=== PATIENT | male | born 1995 | race Caucasian/White ===

== ENCOUNTER → 2019-10-18 10:10 | Outpatient (BNVA) | payer SELFPAY | PROVIDERS: Family Provider Family Medicine; PCP Family Medicine; Visit Provider Nurse Practitioner Family | DX: J10.1 Influenza due to other identified influenza virus with other respiratory manifestations (principal) | CPT/HCPCS: 87070; 87804; 87880 ==

== ENCOUNTER 2020-01-06 16:22 | Emergency (ER) | payer SELFPAY ==
[2020-01-06 16:42] VITALS: BP 152/88; PULSE 82; RESP 16; TEMP 36.7; O2SAT 98; BMI 24.3
--- NOTE | 2020-01-06 16:56 | XRR_ITS ---
PROCEDURE INFORMATION: Exam: XR Chest, 1 View Exam date and time: 01/06/2020 5:21 PM Age: 24 years old Clinical indication: Patient HX: Cough/congestion x1 wk TECHNIQUE: Imaging protocol: XR of the chest Views: 1 view. COMPARISON: No relevant prior studies available. FINDINGS: Lungs: Unremarkable. No consolidation. Pleural space: Unremarkable. No pleural effusion. No pneumothorax. Heart/Mediastinum: Unremarkable. No cardiomegaly. Bones/joints: Unremarkable. XR/XR chest 1V portable [id number] IMPRESSION: No acute findings.
--- NOTE | 2020-01-06 17:15 | ED_ITS ---
HPI - URI/Sore Throat General: Chief Complaint: Upper Respiratory Infection Stated Complaint: LEFT SIDE PAIN UPPER CHEST Time Seen by Provider: 01/06/20 17:14 Source: patient Mode of arrival: ambulatory Limitations: no limitations History of Present Illness: HPI Narrative: Patient comes in with post history bronchitis for 1 week. Patient reports feeling somewhat better but continues to have left posterior back pain and occasional cough. Patient was prescribed azithromycin 5 days ago and he completed that today. Patient appears well. Patient appears in no acute distress or pain. Review of Systems General: Reports: 10 or more systems reviewed and unremarkable except in HPI and below Resp: Reports: non-productive cough PFS ED PFSH: Social History (Updated 10/18/19 @ 11:04 by Kathrin Resendiz LPN) Smoking and tobacco status: never smoked Alcohol intake: never Physical Exam Const: COMMON NORMALS: no apparent distress and oriented x3 GENERAL APPEARANCE: cooperative HENMT: COMMON NORMALS: normocephalic, external ears normal, EAC's normal, TM's normal bilaterally and external nose normal HEAD & SCALP: normal to inspection and normocephalic FACE & SINUS: normal facial exam NOSE: external nose normal GENERAL EAR: hearing not grossly impaired EXTERNAL EAR: Yes external ears normal EXTERNAL AUDITORY CANAL: EAC's normal TYMPANIC MEMBRANE: TM's normal bilaterally MOUTH: oral and palatal mucosa normal THROAT: posterior oropharynx normal Eye: COMMON NORMALS: PERRL and EOMs intact bilaterally PUPIL: Yes PERRL Neck/C-Spine: COMMON NORMALS: full ROM and no lymphadenopathy Lymph: LYMPHATIC: no lymphedema noted Chest: COMMONS NORMALS: inspection of chest normal and palpation of chest normal Resp: COMMON NORMALS: normal respiratory effort and clear to auscultation bilaterally AUSCULTATION: clear to auscultation bilaterally Cardio: COMMON NORMALS: regular rate and regular rhythm RATE: regular rate RHYTHM: regular rhythm GI: COMMON NORMALS: normal to inspection, nondistended, normoactive bowel sounds and non-tender : COMMON NORMALS: Yes no CVA tenderness BLADDER/KIDNEY EXAM: Yes no CVA tenderness Back/Pelvis: COMMON NORMALS: no CVA tenderness and thoracic and lumbar spine normal to inspection Extremity: COMMON NORMALS: normal to inspection GENERAL: No edema Neuro: COMMON NORMALS: oriented x3, moves all extremities and no focal motor deficits Psych: COMMON NORMALS: mental status grossly normal and cooperative Skin: COMMON NORMALS: no rashes or lesions noted GENERAL SKIN EXAM: no rashes or lesions noted Course Vital Signs: Vital signs: Vital Signs Temperature 98.1 F 01/06/20 16:42 Pulse Rate 82 01/06/20 16:42 Respiratory Rate 16 01/06/20 16:42 Blood Pressure 152/88 01/06/20 16:42 Pulse Oximetry 98 01/06/20 16:42 MDM - URI/Sore Throat MDM Narrative: Medical decision making narrative: Patient comes in for continued cough and some left posterior chest wall pain after treatment for bronchitis. Exam notes clear lung lung solis on auscultation. Skin is warm and dry. No edema in the extremities. Vital signs are normal. No fever. Differential diagnosis pneumonia, pleurisy, bronchitis, asthma, costochondritis. Chest x-ray was normal. Reviewed exam with patient recommended treatment with pleurisy with prednisone. Patient reports understanding of care plan and need for follow-up. Discharge Plan Discharge Patient Disposition: Home, Self-Care Clinical Impression: Pleurisy, residual, Bronchitis Condition: Stable Prescriptions: New prednisone 20 mg tablet 40 mg PO DAILY 5 Days Qty: 10 RF: 0 No Action azithromycin 250 mg tablet See Rx Instructions PO .COMPLEX Qty: 6 RF: 0 Referrals: Saskia De Paz MD [Family Provider] - Blaine Bhat DO [Primary Care Provider] - Discharge Diet: Usual diet Discharge Activity: Increase activity as tolerated Patient Instructions: Pleurisy (ED) Activity Restrictions/Additional Instructions: drink plenty of water with medications Activity as tolerated Healthy diet and exercise Medications as directed Follow-up with primary care in one week for recheck Return to ER for increased difficulty breathing or high fever Coding Level of Care Code ED Cardiothoracic Anesthesia Technician for Chg Fwd Exam Comprehensive
[2020-01-06 17:56] VITALS: BP 148/68; PULSE 81; RESP 16; O2SAT 97
== END 2020-01-06 17:58 | disposition home or self-care (01) ==
LOC: ER 01-24 11:29
PROVIDERS: Emergency Provider Nurse Practitioner Family; Family Provider Family Medicine; PCP Family Medicine
DX: R09.1 Pleurisy (principal); J40 Bronchitis, not specified as acute or chronic
CPT/HCPCS: 12345; 71045; 99281; 99282

== ENCOUNTER 2021-06-22 09:05 | Emergency (ER) | payer OTHER, SELFPAY ==
[2021-06-22 09:39] VITALS: BP 157/104; PULSE 77; RESP 18; TEMP 36.6; O2SAT 99; BMI 25.0
--- NOTE | 2021-06-22 10:46 | W.ED.WOUNDLC ---
HPI - Wound/Laceration General: Chief Complaint: Wound/Laceration Stated Complaint: Cut Hand with Razorblade Time Seen by Provider: 06/22/21 10:40 History of Present Illness: HPI narrative: Patient is a 25-year-old male who comes to the ED with a laceration on left hand. Injury occurred just prior to arrival. Patient was at work using a razor blade to strip a wire and accidentally cut his left hand. Laceration is around the thenar region of left hand. He immediately rinsed laceration under some water and then bandaged it up. He reports some mild stinging pain if he moves his thumb but has full movement of fingers and thumb. Patient had a tetanus shot within the past 2 years. Associated symptoms: Denies chills, fever(s), nausea or vomiting Review of Systems Const: Denies: fever(s), chills or fatigue Eyes: Denies: change in vision or eye discomfort ENMT: Denies: throat pain, odynophagia, nasal discharge or nasal congestion Card: Denies: chest pain, palpitations, edema, swelling of feet/ankles, dyspnea on exertion or orthopnea Resp: Denies: dyspnea, productive cough or non-productive cough GI: Denies: abdominal pain, nausea, vomiting, diarrhea, constipation or hematochezia : Denies: flank pain, difficulty urinating, dysuria or hematuria Musc: Denies: neck pain, back pain or extremity swelling Skin/Breast: Reports: new lesions (Laceration on left hand (thenar region)); Denies: rash Neuro: Denies: headache(s), numbness in extremities or weakness in extremities [facility] ED PFSH: Social History Smoking and tobacco status: never smoked Alcohol intake: never Physical Exam Const: COMMON NORMALS: no acute distress, patient oriented x3, healthy appearing and alert GENERAL APPEARANCE: cooperative and comfortable HENMT: COMMON NORMALS: normocephalic HEAD & SCALP: normocephalic MOUTH: Normal oral and palatal mucosa present THROAT: posterior oropharynx normal and uvula midline Neck/C-Spine: COMMON NORMALS: supple GENERAL: Yes normal visual inspection Resp: COMMON NORMALS: normal respiratory effort, No retractions, No use of accessory muscles and clear to auscultation bilaterally AUSCULTATION: clear to auscultation bilaterally Cardio: COMMON NORMALS: regular rate, regular rhythm, S1 normal heart sound present, S2 normal heart sound present, No gallops present (Cardio), No clicks present (Cardio), No murmurs present (Cardio) and Peripheral pulses 2+ throughout RATE: regular rate RHYTHM: regular rhythm HEART SOUNDS: S1 normal heart sound present and S2 normal heart sound present PERIPHERAL PULSES: Peripheral pulses 2+ throughout GI: COMMON NORMALS: Normal to inspection, nondistended, normoactive bowel sounds present, Soft to palpation, non-tender and no masses PALPATION: Yes Soft to palpation : COMMON NORMALS: Yes no CVA tenderness BLADDER/KIDNEY EXAM: Yes no CVA tenderness Back/Pelvis: COMMON NORMALS: no CVA tenderness Extremity: NARRATIVE EXTREMITY EXAM: Left hand?thenar region?1.5 cm linear and superficial laceration. No active bleeding, foreign body or contaminants noted. GENERAL: Yes normal exam except as noted Neuro: COMMON NORMALS: patient oriented x3 and moves all extremities SENSORIUM/ORIENTATION: Yes alert Skin: NARRATIVE SKIN EXAM: Left hand?thenar region?1.5 cm linear and superficial laceration. No active bleeding, foreign body or contaminants noted. GENERAL SKIN EXAM: dry skin Procedures Laceration Laceration 1: Site: hand Side (If applicable): left Size (cm): 1.5 Description: linear Depth: simple, single layer Local Anesthetic: lidocaine 1% Amount of anesthesia used (mL): 10 Pre-repair: irrigated extensively (With normal saline and skin cleaned with CHG swab.) Skin layer closed with: nylon Size (cm): 4-0 Number of sutures: 6 Technique: simple, interrupted Course Vital Signs: Vital signs: Vital Signs Temperature 98.2 F 06/22/21 11:12 Pulse Rate 68 06/22/21 11:12 Respiratory Rate 14 06/22/21 11:12 Blood Pressure 153/79 06/22/21 11:12 Pulse Oximetry 100 06/22/21 11:12 MDM - Wound/Laceration MDM Narrative: Medical decision making narrative: Patient is a 25-year-old male comes to the ED with a superficial laceration left hand. Laceration was cleaned and irrigated with normal saline solution and CHG swab. Lidocaine 1% was used as local and 6 sutures were placed to close laceration. Patient was instructed on how to care for laceration site. He was sent home with prophylactic prescription of cephalexin. He was told to have sutures removed in 7 to 10 days. Patient understood and agreed with plan. All Worker's Comp. paperwork was completed and signed. Discharge Plan Discharge Patient Disposition: Home Clinical Impression: Laceration Condition: Stable Prescriptions: New cephalexin 500 mg capsule 500 mg PO Q6H 4 Days Qty: 16 RF: 0 No Action ondansetron HCl [Zofran] 4 mg tablet 4 mg PO Q6H PRN (Reason: nausea and vomiting) Qty: 15 RF: 0 Discharge Orders: Discharge ED (Routine); Ordered 06/22/21 Ordered By: Andrew Sanders Discharge Diet: Regular Discharge Activity: Increase activity as tolerated and Limit activity as instructed Patient Instructions: Suture Care (ED), Laceration (ED) Activity Restrictions/Additional Instructions: Take full course of antibiotics as prescribed. Keep laceration site clean and dry for the next 48 hours. Then after that you can clean and re-bandage daily. Watch for signs of infection such as redness, warmth, increased tenderness and puslike drainage. If you see the signs of infection return to the ED, urgent care or PCP for reevaluation. call your PCP to schedule a follow-up appointment for reevaluation and suture removal in about 7- 10 days. Continue taking all home meds. Follow discharge plans as discussed. You can return to the ED if symptoms worsen. Coding Level of Care Code ED Construction Administrative Assistant for Jacqueline Kern Exam Comprehensive
--- NOTE | 2021-06-22 11:09 | PC.NURSE ---
report to evie baker
[2021-06-22 11:12] VITALS: BP 153/79; PULSE 68; RESP 14; TEMP 36.8; O2SAT 100
--- NOTE | 2021-06-22 11:12 | PC.NURSE ---
Asssumed care of this patient at this time.
[2021-06-22 11:47] VITALS: BP 138/64; PULSE 68; RESP 14; TEMP 36.6; O2SAT 100
== END 2021-06-22 11:52 | disposition home or self-care (01) ==
PROVIDERS: Emergency Provider Physician Assistant
DX: S61.412A Laceration without foreign body of left hand, initial encounter (principal); W26.8XXA Contact with other sharp object(s), not elsewhere classified, initial encounter; Y99.0 Civilian activity done for income or pay
CPT/HCPCS: 12001; 99283

== ENCOUNTER → 2022-11-25 10:47 | Outpatient (BNVA) | payer MEDICAID, SELFPAY | PROVIDERS: Visit Provider Podiatrist Foot & Ankle Surgery | DX: M20.42 Other hammer toe(s) (acquired), left foot (principal); M25.872 Other specified joint disorders, left ankle and foot; G57.62 Lesion of plantar nerve, left lower limb | CPT/HCPCS: 73630 ==

== ENCOUNTER 2024-04-28 19:13 | Emergency (ER) | payer SELFPAY ==
--- NOTE | 2024-04-28 19:14 | USR_ITS ---
PROCEDURE INFORMATION: Exam: US Scrotum and US Duplex Artery and Vein, Scrotum, Complete Exam date and time: 04/28/2024 7:40 PM Age: 28 years old Clinical indication: Scrotum pain; Additional info: Testicular pain TECHNIQUE: Imaging protocol: Real-time ultrasound of the scrotum. Real-time duplex ultrasound scan of the arterial and venous flow of the scrotum with B-mode, color Doppler flow and spectral waveform analysis. Complete exam. Duplex exam was performed to evaluate for torsion and other vascular conditions. COMPARISON: No relevant prior studies available. FINDINGS: Right testicle: Normal. No mass. Normal arterial and venous waveforms on Doppler. No torsion. Left testicle: Normal. No mass. Normal arterial and venous waveforms on Doppler. No torsion. Epididymides: Normal. Extratesticular spaces: Small bilateral hydroceles. Scrotum/soft tissues: Normal. US/US scrotum [id number] IMPRESSION: Small bilateral hydroceles. No sonographic evidence of acute testicular torsion.
[2024-04-28 19:25] VITALS: BP 149/80; PULSE 78; RESP 16; TEMP 36.7; O2SAT 98; BMI 26.9
[2024-04-28 21:16] LABS: Add Urine Microscopic? NO; Charge for UA Resulting for Rev
[2024-04-28 21:29] LABS: Bilirubin Urine Neg (Negative); Blood Urine Neg (Negative); Glucose Urine UA Norm (Normal); Ketones Urine 1+ (Negative); Leukocyte Esterase Urine Negative (Negative); Nitrate Urine Negative (Negative); Protein Urine Neg (Negative); Urine Appearance Clear (CLEAR); Urine Color Yellow (Yellow); Urobilinogen Urine Neg (Negative); pH Urine 5 (5-7)
--- NOTE | 2024-04-28 21:53 | W.ED.MALEGU ---
HPI - Male Genitourinary General: Chief complaint: Urogenital-Male Stated complaint: Lower abd pain Time Seen by Provider: 04/28/24 20:55 History of Present Illness: 28-year-old male with a history of left testicular pain. He was sent from urgent care. He says that he had pain for a couple of days starting about a week ago. Pain is now resolved. He now is having problems with rectal dysfunction. He believes these 2 things are related. No penile discharge. No dysuria. No swelling. No other symptoms. PFS ED PFSH: Social History Smoking and tobacco/nicotine status: unknown if used tobacco/nicotine Alcohol intake: never Substance/Drug Use: never Physical Exam Const: COMMON NORMALS: no acute distress GENERAL APPEARANCE: cooperative; not ill appearing and not frail appearing HENMT: COMMON NORMALS: normocephalic, atraumatic and Normal external nose present HEAD & SCALP: normocephalic and atraumatic FACE & SINUS: normal facial exam and face symmetric NOSE: Normal external nose present Eye: COMMON NORMALS: Equal, round and reactive pupils present and EOMs intact bilaterally PUPIL: Yes Equal, round and reactive pupils present Neck/C-Spine: GENERAL: Yes trachea midline Chest: CHEST: Yes Symmetrical chest wall rise Resp: COMMON NORMALS: normal respiratory effort, No retractions, No use of accessory muscles and clear to auscultation bilaterally AUSCULTATION: clear to auscultation bilaterally Cardio: COMMON NORMALS: regular rate and regular rhythm RATE: regular rate RHYTHM: regular rhythm GI: COMMON NORMALS: Normal to inspection, nondistended, normoactive bowel sounds present : OTHER: Exam reveals descended testicles bilaterally. There is minimal tenderness. No masses. No significant scrotal swelling. No inguinal ring hernia. Penis is normal. Extremity: COMMON NORMALS: no pedal edema Neuro: LEVY COMA SCALE: document GCS findings [place] coma scale eye opening: Spontaneous Levy coma scale verbal response: Orientated [place] coma scale motor response: Obey commands [place] coma scale total score: 15 SENSORY EXAM: Yes extremities (intact) Psych: COMMON NORMALS: speech normal SPEECH: Yes normal speech Skin: COMMON NORMALS: no rashes or lesions noted GENERAL SKIN EXAM: no rashes or lesions noted Course Vital Signs: Vital signs: Vital Signs Temperature 98.0 F 04/28/24 19:25 Pulse Rate 78 04/28/24 19:25 Respiratory Rate 16 04/28/24 19:25 Blood Pressure 149/80 04/28/24 19:25 Pulse Oximetry 98 04/28/24 19:25 Oxygen Delivery Me thod Room Air 04/28/24 19:25 MDM - Male Medical Decision Making Normal testicular exam. Urinalysis is negative. Patient has blood flow to both testicles on ultrasound. Provide discharged home for outpatient follow-up. Lab Data Radiology Impressions Scrotum Ultrasound 04/28/24 19:14 IMPRESSION: Small bilateral hydroceles. No sonographic evidence of acute testicular torsion. Laboratory Results Urine Color Yellow (Yellow) 04/28/24 20:58 Urine Appearance Clear (CLEAR) 04/28/24 20:58 Urine pH 5 (5-7) 04/28/24 20:[address] 1.020 (1.005-1.030) 04/28/24 20:58 Urine Protein Neg (Negative) 04/28/24 20:58 Urine Glucose (UA) Norm (Normal) 04/28/24 20:58 Urine Ketones 1+ (Negative) H 04/28/24 20:58 Urine Blood Neg (Negative) 04/28/24 20:58 Urine Nitrate Negative (Negative) 04/28/24 20:58 Urine Bilirubin Neg (Negative) 04/28/24 20:58 Urine Urobilinogen Neg mg/dL (Negative) 04/28/24 20:58 Ur Leukocyte Esterase Negative (Negative) 04/28/24 20:58 All radiology interpretation(s) finalized by discharge Discharge Plan Discharge Patient Disposition: Home Clinical Impression: Pain in left testicle Condition: Stable Discharge Orders: Discharge ED (Routine); Ordered 04/28/24 Ordered By: Benigno Rahman Patient Instructions: Testicle Pain (ED), Opioid Safety, Pain Management Activity Restrictions/Additional Instructions: Return for return of testicular pain, swelling, fever, discharge, other concerning symptoms. See your doctor next week. Coding Level of Care Code ED Councilor for Jacqueline Kern
== END 2024-04-28 22:08 | disposition home or self-care (01) ==
PROVIDERS: Emergency Provider Emergency Medicine
DX: N50.812 Left testicular pain (principal)
CPT/HCPCS: 76870; 81003; 99284

== ENCOUNTER 2024-12-29 00:01 | Emergency (ER) | payer SELFPAY ==
[2024-12-29 00:18] VITALS: BP 134/77; PULSE 104; RESP 18; TEMP 36.7; O2SAT 100; BMI 25.7
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
[2024-12-29 01:03] LABS: Bilirubin Urine Negative (Negative); Blood Urine Negative (Negative); Glucose Urine UA Negative (Normal); Ketones Urine Trace (Negative); Leukocyte Esterase Urine Trace (Negative); Nitrate Urine Negative (Negative); Protein Urine Negative (Negative); Specific Gravity, Urine 1.024 (1.005-1.030); Urine Appearance Clear (CLEAR); Urine Color Yellow (Yellow); pH Urine 6.5 (5-7)
[2024-12-29 01:08] LABS: Add Urine Microscopic? YES; Bacteria Urine None Seen /hpf; RBC Urine 0-2 /hpf (0-2); Squamous Epithelial Cell Urine 0-5 /hpf (0-5); WBC Urine 0-5 /hpf (0-5)
[2024-12-29 01:13] VITALS: BP 150/93; PULSE 100; RESP 16; O2SAT 99
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
[2024-12-29] MEDS: ibuprofen 800 mg tablet PO (03:43)
[2024-12-29] MEDS: bacitracin ointment Pkt 1 EACH TOPICAL (03:43)
[2024-12-29 03:51] VITALS: BP 150/83; PULSE 96; O2SAT 99
== END 2024-12-29 03:47 | disposition home or self-care (01) ==
PROVIDERS: Emergency Provider Emergency Medicine
DX: S20.221A Contusion of right back wall of thorax, initial encounter (principal); X37.1XXA Tornado, initial encounter
CPT/HCPCS: 70450; 72100; 72125; 81001; 99284; J9999